=== PATIENT | female | born 1980 | race Caucasian/White ===

== ENCOUNTER 2017-05-06 15:32 | Emergency (ER) | payer SELFPAY ==
--- NOTE | 2017-05-06 17:09 | DIAGNOSTIC IMAGING REPORT ---
PROCEDURE: XR LUMBAR SPINE 2 OR 3 VIEWS INDICATION: LOWER BACK PAIN TECHNIQUE: Three views. COMPARISON: None. FINDINGS: Osseous structures and disc spaces are normal. No evidence of an acute process or fracture. IMPRESSION: 1. Negative lumbar spine.
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
--- NOTE | 2017-05-06 17:12 | DIAGNOSTIC IMAGING REPORT ---
PROCEDURE: XR CERVICAL SPINE 2 OR 3 VIEW INDICATION: NECK PAIN TECHNIQUE: Three views. COMPARISON: None. FINDINGS: Osseous structures and disc spaces are normal. No evidence of an acute process or fracture. IMPRESSION: 1. Negative cervical spine.
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
--- NOTE | 2017-05-06 17:32 | ED ORDER SUMMARY ---
..... Patient: OMAR KEBEDE OrderSheet [facility] VisitID: [id number] [address] [place] [address] 36y, F Registration Date/Time: 05/06/2017 ORDER SHEET Weight: 86.1 kg (stated) Allergies: None GENERAL ORDERS: Lumbar Spine 2 or 3V Urgent (15:47 05/06/2017 EKoroleva P.A.-C) (Ack 15:53 PWeiler ER Tech1) (16:31 LNations ER Tech1) Thoracic Spine 3V Urgent (15:47 05/06/2017 EKoroleva P.A.-C) (Ack 15:53 PWeiler ER Tech1) (16:31 LNations ER Tech1) Cervical Spine 2 or 3V Urgent (15:47 05/06/2017 EKoroleva P.A.-C) (Ack 15:53 PWeiler ER Tech1) (16:31 LNations ER Tech1) MEDICATION ORDERS: Valium IM 5 mg (HIGH ALERT MEDICATION, NOW) (15:48 05/06/2017 EKoroleva P.A.-C) (Cancelled: Other16:07 EKoroleva P.A.-C) Percocet PO 5/325 mg (HIGH ALERT MEDICATION, NOW) (15:48 05/06/2017 EKoroleva P.A.-C) (15:58 JSimbeck R.N.) Valium PO 10 mg (HIGH ALERT MEDICATION, NOW) (16:07 05/06/2017 EKoroleva P.A.-C) (16:36 JSimbeck R.N.) IV FLUIDS: ORDER SHEET NOTES: [Electronically signed by Geoffrey Tabares R.N. (18:10 05/06/2017)] [Electronically signed by Itzel WittATila-C (19:14 05/06/2017)] [Electronically locked/signed by Geoffrey Tabares R.N. (18:10 05/06/2017)]
--- NOTE | 2017-05-06 17:32 | ED ORDER SUMMARY ---
..... Patient: OMAR KEBEDE OrderSheet [facility] VisitID: [id number] [address] [place] [address] 36y, F Registration Date/Time: 05/06/2017 ORDER SHEET Weight: 86.1 kg (stated) Allergies: None GENERAL ORDERS: Lumbar Spine 2 or 3V Urgent (15:47 05/06/2017 EKoroleva P.A.-C) (Ack 15:53 PWeiler ER Tech1) (16:31 LNations ER Tech1) Thoracic Spine 3V Urgent (15:47 05/06/2017 EKoroleva P.A.-C) (Ack 15:53 PWeiler ER Tech1) (16:31 LNations ER Tech1) Cervical Spine 2 or 3V Urgent (15:47 05/06/2017 EKoroleva P.A.-C) (Ack 15:53 PWeiler ER Tech1) (16:31 LNations ER Tech1) MEDICATION ORDERS: Valium IM 5 mg (HIGH ALERT MEDICATION, NOW) (15:48 05/06/2017 EKoroleva P.A.-C) (Cancelled: Other16:07 EKoroleva P.A.-C) Percocet PO 5/325 mg (HIGH ALERT MEDICATION, NOW) (15:48 05/06/2017 EKoroleva P.A.-C) (15:58 JSimbeck R.N.) Valium PO 10 mg (HIGH ALERT MEDICATION, NOW) (16:07 05/06/2017 EKoroleva P.A.-C) (16:36 JSimbeck R.N.) IV FLUIDS: ORDER SHEET NOTES: [Electronically signed by Geoffrey Tabares R.N. (18:10 05/06/2017)] [Electronically signed by Itzel WittATila-C (19:14 05/06/2017)] [Electronically locked/signed by Geoffrey Tabares R.N. (18:10 05/06/2017)]
--- NOTE | 2017-05-06 19:14 | ED MAR SUMMARY ---
..... Medication Administration Record [facility] [address] [place] [place] [address] Patient: OMAR KEBEDE Visit ID: [id number] 36y, F Weight: 86.1 kg Height/Length: 69 in BMI: 28.1 ALLERGIES: None Given 15:55 05/06/2017 Geoffrey Tabares R.N. Medication Administered: PERCOCET [PO] (OXYCODONE-ACETAMINOPHEN), Dose: 1 tab 5/325 mg Tablets PO. Medication Ordered: Percocet PO 5/325 mg (HIGH ALERT MEDICATION, NOW). Given 16:34 05/06/2017 Geoffrey Tabares R.N. Medication Administered: VALIUM [PO] (DIAZEPAM), Dose: 10 mg Tablets PO. Medication Ordered: Valium PO 10 mg (HIGH ALERT MEDICATION, NOW).
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
--- NOTE | 2017-05-06 19:14 | ED MAR SUMMARY ---
..... Medication Administration Record [facility] [address] [place] [address] Patient: OMAR KEBEDE Visit ID: [id number] 36y, F Weight: 86.1 kg Height/Length: 69 in BMI: 28.1 ALLERGIES: None Given 15:55 05/06/2017 Geoffrey Tabares R.N. Medication Administered: PERCOCET [PO] (OXYCODONE-ACETAMINOPHEN), Dose: 1 tab 5/325 mg Tablets PO. Medication Ordered: Percocet PO 5/325 mg (HIGH ALERT MEDICATION, NOW). Given 16:34 05/06/2017 Geoffrey Tabares R.N. Medication Administered: VALIUM [PO] (DIAZEPAM), Dose: 10 mg Tablets PO. Medication Ordered: Valium PO 10 mg (HIGH ALERT MEDICATION, NOW).
--- NOTE | 2017-05-06 19:14 | ED MED RECONCILIATION SUMMARY ---
Patient: OMAR KEBEDE Medication Reconciliation Report [facility] VisitID: [id number] [address] [place] [address] 36y, F Registration Date/Time: 05/06/2017 Weight: 86.1 kg Height/Length: 69 in. BMI: 28.1 ALLERGIES: None The patient's Home Medications are listed below: THE FOLLOWING MEDICATIONS NEED TO BE RECONCILED: Baclofen Oral Ibuprofen Oral 600 mg, PRN Sertraline HCl Oral Soma Oral Topiramate Oral 25 mg, 2x a day The source(s) of the original Home Medication information: Not obtained. The following Medications were given to the patient in the Emergency Department: Percocet [PO] PO 1 tab, administered: 05/06/2017 3:55:00 PM Valium [PO] PO 10 mg, administered: 05/06/2017 4:34:00 PM The following Medications were prescribed to the patient: Motrin IB 200 mg (available over the counter): take 4 orally every 8 hours as needed for pain -- Itzel Witt P.ATila-Madhu Valium 2 mg: take 1 orally every 12 hours for 5 days as needed for muscle spasm. Dispense ten (10). No refill. Substitution is permissible. -- Itzel Witt, P.A.-C
--- NOTE | 2017-05-06 19:14 | ED MED RECONCILIATION SUMMARY ---
Patient: OMAR KEBEDE Medication Reconciliation Report [facility] VisitID: [id number] [address] [place] [address] 36y, F Registration Date/Time: 05/06/2017 Weight: 86.1 kg Height/Length: 69 in. BMI: 28.1 ALLERGIES: None The patient's Home Medications are listed below: THE FOLLOWING MEDICATIONS NEED TO BE RECONCILED: Baclofen Oral Ibuprofen Oral 600 mg, PRN Sertraline HCl Oral Soma Oral Topiramate Oral 25 mg, 2x a day The source(s) of the original Home Medication information: Not obtained. The following Medications were given to the patient in the Emergency Department: Percocet [PO] PO 1 tab, administered: 05/06/2017 3:55:00 PM Valium [PO] PO 10 mg, administered: 05/06/2017 4:34:00 PM The following Medications were prescribed to the patient: Motrin IB 200 mg (available over the counter): take 4 orally every 8 hours as needed for pain -- Itzel Witt P.ATila-Madhu Valium 2 mg: take 1 orally every 12 hours for 5 days as needed for muscle spasm. Dispense ten (10). No refill. Substitution is permissible. -- Itzel Witt, P.A.-C
== END 2017-05-06 18:06 | disposition home or self-care (01) ==
LOC: ED SRH 15:32
DX: S16.1XXA Strain of muscle, fascia and tendon at neck level, initial encounter (principal); G89.11 Acute pain due to trauma; M54.5 Low back pain; V43.52XA Car driver injured in collision with other type car in traffic accident, initial encounter; Y93.89 Activity, other specified; Y99.9 Unspecified external cause status; Y92.9 Unspecified place or not applicable